=== PATIENT | female | born 1975 | race Two or more races ===

== ENCOUNTER 2020-05-08 01:39 | Emergency (ER) | payer SELFPAY ==
[~2020-05-08] VITALS: Ht 154.9 cm; Wt 76.2 kg
--- NOTE | 2020-05-08 01:53 | Emergency Room Report ---
History of Present Illness General Chief Complaint: Back Pain-No Injury Source: Patient Present Illness HPI 45-year-old female who complains of L flank pain and dysuria x 7 days. Pt describes her urine is malodorous. Denies hematuria, fever, nausea, vomiting, diarrhea. Denies history of kidney stone. She states that since that has been hot recently she has not been drinking very much water. She is concerned that she has a urinary tract infection. Denies midline back pain, saddle anesthesia, bowel/bladder incontinence, or urinary re tention. Describes chronic constipation. The patient's symptoms were gradual onset, severity was moderate, duration since 7 days. Quality: Burning Past medical history: Obesity Past surgical history: x2 Smoking: Denies Alcohol use: Denies Drug use: Denies Review of systems: CONST: No fevers or chills, No night sweats PULMONARY: No productive cough, No shortness of breath CARDIAC: No chest pain, No palpitations GI: No vomiting, No diarrhea , No melena_or_BRBPR : No dysuria, No hematuria, No discharge NEURO: No new_focal_weakness_or_numbness, No confusion, No vision changes 14 point Review of Systems is otherwise negative except per HPI Physical Exam: GENERAL: Awake_alert_ nontoxic, no acute distress Spo2 97% on RA -normal EYES: Extraocular muscles are intact. Conjunctivae clear. Lids without swelling ENT: External nose and ear normal_in_appearance. Oropharynx clear. Head_atraumatic, Moist_oral_mucosa NECK: No JVD. No meningismus. No thyromegaly. Supple. Trachea midline RESP: Normal respiratory effort. Symmetric rise. No stridor. Clear_to_auscultation_No_rales_No_wheezes CARDIAC: Regular rate and regular rhytm. No_significant pedal edema. ABDOMEN: Soft. Nondistended. Nontender_No_rebound_or_guarding. No significant CVA tenderness palpation bilaterally. No pelvic instability. Negative Rovsing. Negative Leonardo sign. Negative obturator sign. MSK: Normal muscle tone, without rigidity. Extremities without asymmetric deformity or swelling. SKIN: Warm and dry. No visible cyanosis or pallor NEUROLOGIC: Alert, oriented x3. Motor_and_sensation_grossly_intact. No truncal ataxia. Gait_normal Psych: Normal mood and affect, normal judgment and insight - COORDINATION OF CARE Case was discussed with: Patient Any labs and imaging that were ordered were interpreted as part of the medical decision making: Medical Decision Making/Plan: Differential diagnosis: Pyelonephritis versus nephrolithiasis versus sciatica versus musculoskeletal sprain/strain Patient's vital signs are afebrile. She is well-appearing. Abdominal examination is notable for left flank tenderness to palpation. Otherwise no guarding or rebound. Urinalysis is consistent with cystitis. CT scan shows no acute surgical emergency. No obstructive uropathy. She was incidentally found to have hiatal hernia, hepatomegaly, and colonic diverticulosis without diverticulitis which she was informed of and told to see her PMD for referral to GI within 3 months. Rocephin was given here in the emergency department. Will discharge patient home with Keflex for her UTI. Colace for constipation. Patient has no red flag symptoms for back pain. No urinary retention, bowel or bladder incontinence, saddle anesthesia, or lower extremity weakness. Doubt conus medullaris, cauda equina, spinal epidural abscess, or other acute spinal emergency. Pertinent results reviewed with the patient. I educated the patient on the current treatment plan including the risks, benefits, and alternatives. I also discussed the extent and limitations of the current evaluation. The patient expressed understanding and agreement with plan. I recommended PMD follow-up wit hin 1-2 days. Also advised that the patient return to the Emergency Department as soon as possible if they experience any new, persistent, or worsening symptoms. Allergies: Coded Allergies: No Known Allergies (Unverified , 05/08/20) COVID-19 Screening Contact w/high risk pt: No Experienced COVID-19 symptoms?: No COVID-19 Testing performed LEAD OPERATOR: No Patient History Now: No Nursing Documentation-[facility] Past Medical History: No Stated History Physical Exam Vital Signs Date Time Temp Pulse Resp B/P (MAP) Pulse Ox O2 Delivery O2 Flow Rate FiO2 05/08/20 01:45 98.1 85 20 162/103 (122) 97 Room Air Sp02 EP Interpretation: reviewed, normal Medical Decision Making Diagnostic Impression: Primary Impression: UTI (urinary tract infection) Additional Impressions: Flank pain Dysuria Hypokalemia Hepatomegaly Hiatal hernia Abdominal obesity Diverticulosis CT/MRI/US Diagnostic Results CT/MRI/US Diagnostic Results : Impression CT Abdomen and Pelvis Without Intravenous Contrast FINDINGS: Lung bases: No mass. No consolidation. High-density material in the aortic valve area. ABDOMEN: Liver: Enlarged. Gallbladder and bile ducts: Unremarkable. Pancreas: No ductal dilation. Spleen: Unremarkable. Adrenals: Unremarkable. Kidneys and ureters: No obstructing stones. No hydronephrosis. Stomach and bowel: No bowel obstruction. No bowel wall thickening. Mild hiatal hernia. Mild colonic diverticulosis. PELVIS: Appendix: No evidence of appendicitis. Bladder: No stones. Reproductive: IUD is in place. ABDOMEN and PELVIS: Intraperitoneal space: Unremarkable. Bones/joints: No acute fractures. Soft tissues: Unremarkable. Vasculature: No abdominal aortic aneurysm. Lymph nodes: No enlarged lymph nodes. IMPRESSION: 1. No acute findings are seen overall. 2. Partially visualized heart demonstrates calcifications versus postsurgical change in the aortic valve area. 3. Hepatomegaly. 4. Mild hiatal hernia. 5. Mild colonic diverticulosis. Dictated By: NANCY BRAXTON M.D. Reevaluation Time: 04:02 Last Vital Signs Date Time Temp Pulse Resp B/P (MAP) Pulse Ox O2 Delivery O2 Flow Rate FiO2 05/08/20 01:45 98.1 85 20 162/103 (122) 97 Room Air Status: improved Disposition: HOME, SELF-CARE Admit Decision Time: 04:02 Condition: Stable Scripts Docusate Sodium* (COLACE*) 100 Mg Capsule 100 MG ORAL THREE TIMES A DAY for 7 Days, #21 CAP Prov: Rachel Austin D.O. 05/08/20 Naproxen* (NAPROXEN*) 500 Mg Tablet.dr 500 MG ORAL TWICE A DAY for 10 Days, #20 TAB Prov: Rachel Austin D.O. 05/08/20 Cephalexin* (KEFLEX*) 500 Mg Capsule 500 MG ORAL EVERY 12 HOURS for 5 Days, #10 CAP 0 Refills Prov: Rachel Austin D.O. 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 You have colonic diverticulosis that was found on your CAT scan secondary to poor diet with lack of fiber. You will need to follow-up with your primary care doctor for eventual referral to a GI specialist. Eat a healthy diet. You were also noted to have a hiatal hernia. This will need follow-up with specialist within 3 months Follow-up with your doctor sooner if your condition requires a more timely clinical reevaluation. Return to the emergency department immediately if you feel that your condition is worsening or if you have any new or concerning symptoms. Review your discharge instructions and take any prescriptions given as instructed. [facility] PROVIDES FREE OR LOW-COST HEALTH SERVICES TO PEOPLE WHO CAN SHOW PROOF THAT THEY LIVE IN [facility]. TO FIND MORE CLINICS PARTNERED WITH [facility] TO PROVIDE SERVICE, PLEASE CALL . Rachel Austin D.O. May 08, 2020 01:53
[2020-05-08 01:55] VITALS: BP 162/103
[2020-05-08] MEDS ORDERED: Ketorolac 30mg Inj IV ONE (02:00)
[2020-05-08] MEDS ORDERED: Morphine Sulfate 2mg/ml Inj(IV/IM USE ONLY) IVP ONE (02:00)
[2020-05-08 02:33] LABS: BASOPHILS % (AUTO) 2.7 % (0.0-2.0); BILIRUBIN, URINE NEGATIVE (NEGATIVE); EOSINOPHILS % (AUTO) 3.6 % (0.0-3.0); GLUCOSE, URINE (UA) NEGATIVE (NEGATIVE); HEMATOCRIT 38.8 % (37.0-47.0); HEMOGLOBIN 13.1 G/DL (12.0-16.0); KETONES,URINE NEGATIVE (NEGATIVE); LEUKOCYTE ESTERASE ,URINE 1+ (NEGATIVE); LYMPHOCYTES % (AUTO) 27.1 % (20.0-45.0); MEAN CORPUSCULAR VOLUME 81 FL (80-99); NEUTROPHILS % (AUTO) 60.6 % (45.0-75.0); NITRITE,URINE NEGATIVE (NEGATIVE); PH,URINE 5 (4.5-8.0); PLATELET COUNT 301 K/UL (150-450); PROTEIN,URINE 1+ (NEGATIVE); RED BLOOD COUNT 4.79 M/UL (4.20-5.40); RED CELL DISTRIBUTION WIDTH 12.8 % (11.6-14.8); UROBILINOGEN,URINE NORMAL MG/DL (0.0-1.0); WHITE BLOOD COUNT 8.6 K/UL (4.8-10.8)
[2020-05-08 02:36] LABS: ANION GAP 10 mmol/L (5-15); BLOOD UREA NITROGEN 13 mg/dL (7-18); CALCIUM 8.8 MG/DL (8.5-10.1); CARBON DIOXIDE 24 MMOL/L (21-32); CHLORIDE 105 MMOL/L (98-107); CREATININE 0.8 MG/DL (0.55-1.30); POTASSIUM 3.3 MMOL/L (3.5-5.1); SODIUM 139 MMOL/L (136-145)
[2020-05-08 02:38] LABS: INR 0.9 (0.9-1.1)
[2020-05-08 02:40] LABS: ALANINE AMINOTRANSFERASE 38 U/L (12-78); ALBUMIN/GLOBULIN RATIO 0.8 (1.0-2.7); ALKALINE PHOSPHATASE 87 U/L (46-116); ASPARTATE AMINO TRANSFERASE 13 U/L (15-37); BILIRUBIN,TOTAL 0.2 MG/DL (0.2-1.0)
[2020-05-08 02:46] LABS: APPEARANCE,URINE SLIGHTLY CLOUDY; COLOR,URINE YELLOW
[2020-05-08] MEDS ORDERED: cefTRIAXone 1 GM in NS 55 ML IVPB ONE (03:15)
[2020-05-08] MEDS ORDERED: CEPHALEXIN500 MG ORAL (03:30)
[2020-05-08] MEDS ORDERED: NAPROXEN500 M1 ORAL (03:30)
--- NOTE | 2020-05-08 03:58 | Diagnostic Imaging Report ---
EXAM: CT Abdomen and Pelvis Without Intravenous Contrast CLINICAL HISTORY: ABD PAIN TECHNIQUE: Axial computed tomography images of the abdomen and pelvis without intravenous contrast. CTDI is 17.20 mGy and DLP is 952.50 mGy-cm. One or more of the following dose reduction techniques were used: automated exposure control, adjustment of the mA and/or kV according to patient size, use of iterative reconstruction technique. COMPARISON: No relevant prior studies available. FINDINGS: Lung bases: No mass. No consolidation. High-density material in the aortic valve area. ABDOMEN: Liver: Enlarged. Gallbladder and bile ducts: Unremarkable. Pancreas: No ductal dilation. Spleen: Unremarkable. Adrenals: Unremarkable. Kidneys and ureters: No obstructing stones. No hydronephrosis. Stomach and bowel: No bowel obstruction. No bowel wall thickening. Mild hiatal hernia. Mild colonic diverticulosis. PELVIS: Appendix: No evidence of appendicitis. Bladder: No stones. Reproductive: IUD is in place. ABDOMEN and PELVIS: Intraperitoneal space: Unremarkable. Bones/joints: No acute fractures. Soft tissues: Unremarkable. Vasculature: No abdominal aortic aneurysm. Lymph nodes: No enlarged lymph nodes. IMPRESSION: 1. No acute findings are seen overall. 2. Partially visualized heart demonstrates calcifications versus postsurgical change in the aortic valve area. 3. Hepatomegaly. 4. Mild hiatal hernia. 5. Mild colonic diverticulosis.
[2020-05-08] MEDS ORDERED: COLACE100 MG ORAL (04:02)
[2020-05-08 04:10] VITALS: BP 138/99
== END 2020-05-08 04:10 | disposition home or self-care (01) ==
LOC: EMR 01:58
DX: N39.0 Urinary tract infection, site not specified (principal); R10.9 Unspecified abdominal pain; R30.0 Dysuria; E87.6 Hypokalemia; R16.0 Hepatomegaly, not elsewhere classified; K44.9 Diaphragmatic hernia without obstruction or gangrene; E66.9 Obesity, unspecified; K57.90 Diverticulosis of intestine, part unspecified, without perforation or abscess without bleeding; Z97.5 Presence of (intrauterine) contraceptive device; Z68.31 Body mass index [BMI] 31.0-31.9, adult
CPT/HCPCS: 36415; 74176; 80053; 81003; 81025; 83690; 85025; 85610; 85730; 87086; 96361; 96365; 96375; 99284; J0696; J1885; J2270; J2405; J7030; J8499